=== PATIENT | male | born 1995 | race Two or more races ===

== ENCOUNTER 2023-11-17 18:55 | Emergency (ER) | payer OTHER ==
[~2023-11-17] VITALS: Ht 172.7 cm; Wt 83.9 kg
[2023-11-17 20:38] LABS: HEMATOCRIT 39.5 % (39.0-48.0); HEMOGLOBIN 13.6 g/dL (13-16.00); MEAN CELL VOLUME 84.1 fL (80.0-100.00); MEAN CORPUSCULAR HGB CONC 34.5 g/dl (32.0-36.0); PLATELET COUNT 207 K/uL (150-450); RED CELL DISTRIBUTION WIDTH 13.5 % (11.5-14.5)
[2023-11-17 20:53] LABS: ALBUMIN 4.4 gm/dL (3.4-5.0); BILIRUBIN TOTAL 0.55 mg/dL (0.3-1.2); CALCIUM 9.1 mg/dL (8.5-10.1); CREATININE SERUM 1.03 mg/dL (0.70-1.30); GFR 85.38; GLOBULINA 2.6 G/DL (2.4-3.5); POTASSIUM 3.84 mEq/L (3.5-5.1)
== END 2023-11-17 23:36 | disposition home or self-care (01) ==
LOC: ER 18:57
PROVIDERS: General Practice
DX: K25.9 Gastric ulcer, unspecified as acute or chronic, without hemorrhage or perforation (principal); R10.9 Unspecified abdominal pain; Z20.822 Contact with and (suspected) exposure to COVID-19; Z88.0 Allergy status to penicillin; Z88.8 Allergy status to other drugs, medicaments and biological substances

== ENCOUNTER 2025-06-10 19:24 | Emergency (ER) | payer OTHER ==
[~2025-06-10] VITALS: Ht 172.7 cm; Wt 81.6 kg
[2025-06-10 21:20] LABS: URINE APPEARANCE Clear; URINE BILIRRUBIN Negative (NEGATIVE); URINE BLOOD Small; URINE COLOR Yellow; URINE GLUCOSE Negative (NEGATIVE); URINE KETONE Trace (NEGATIVE); URINE LEUKOCYTE Negative; URINE NITRATE Negative; URINE PROTEIN Trace (NEGATIVE); URINE UROBILINOGEN 1.0 E.U./dl
[2025-06-10 21:21] LABS: URINE EPITHELIAL CELLS 1.6 uL (0.0-38.8); URINE RBC 33.5 uL (0.0-20.8); URINE WBC 3.6 uL (0.0-23.2)
[2025-06-10 21:33] LABS: URINE BACTERIA 3.5 uL (0.0-1933); URINE CAST 0.43 uL (0.0-1.40)
[2025-06-10] MEDS ORDERED: KETOROLAC TROMETHAMINE 15 MG VIAL IM STA (21:55)
[2025-06-10] MEDS ORDERED: KETOROLAC TROMETHAMINE 30 MG VIAL ONE (21:57)
[2025-06-10] MEDS ORDERED: TAMS0.4C PO (22:06)
[2025-06-10] MEDS ORDERED: KETO10TA2 PO (22:06)
== END 2025-06-10 23:05 | disposition home or self-care (01) ==
LOC: ER 19:24
PROVIDERS: Emergency Medicine
DX: R10.31 Right lower quadrant pain (principal); R10.32 Left lower quadrant pain; N39.0 Urinary tract infection, site not specified; Z88.0 Allergy status to penicillin; Z88.8 Allergy status to other drugs, medicaments and biological substances